=== PATIENT | male | born 1990 | race Caucasian/White ===

== ENCOUNTER 2017-06-27 09:05 | Emergency (ER) | payer OTHER ==
[2017-06-27 09:16] VITALS: BP 125/70; PULSE 82; TEMP 98.6; BMI 31.8
--- NOTE | 2017-06-27 09:30 | PDOC ---
Post Exposure HPI - General Chief Complaint: Non EmpBld/Body Flud Exposure Stated Complaint: PRICKED BY NEEDLE Time Seen by Provider: 06/27/17 09:20 History Source: Patient Exam Limitations: No Limitations - History of Present Illness Initial Comments: 06/27/17 10:20 Chief complaint questionable needlestick injury to left thumb at work today History of present illness: Patient is a 26-year-old male with no significant medical history employee of [employer] here today after patient was struck in his left palmar proximal thumb by a sharp object which patient believed to be a needle at 8 am today. Patient was wearing latex gloves at the time. Warts that it bled immediately and he declined cleaned it out with water and then 30 minutes later cleaned it out with soap and water. Patient and other employees tried to look through the garbage to see whether or not there was broken glass or any needles they did not find any broken glass or needles however there was a large amount of garbage difficult to go through every bit. Patient does not have any record of having hepatitis B vaccine. Patient is not up-to-date with tetanus. 06/27/17 11:13 Timing: this morning (8am) Severity: mild Exposed Location: Left: Finger(s) (thumb proximal palmar aspect ) Assessing Significant Risk PEP: Yes Percutaneous Past History - Past Medical History Allergies/Adverse Reactions: Allergies No Known Allergies Allergy (Verified 06/27/17 09:11) Home Medications: Ambulatory Orders NK [No Known Home Medication] 06/27/17 General: Yes: no pertinent history - Immunization History Immunizations Up to Date: Yes - Social History Smoking Status: Never smoked Review of Systems - Review of Systems Able to Perform ROS?: Yes Constitutional: No: Symptoms Reported HEENTM: No: Symptoms Reported Respiratory: No: Symptoms reported Cardiac (ROS): No: Symptoms Reported ABD/GI: No: Symptoms Reported : No: Symptoms Reported Musculoskeletal: No: Symptoms Reported Integumentary: Yes: Other (left thumb proximal palmar aspect ? needlestick punctate bradford) Neurological: No: Symptoms reported *Physical Exam - Vital Signs Last Vital Signs Temp Pulse Resp BP Pulse Ox 98.6 F 82 18 125/70 97 06/27/17 09:12 06/27/17 09:12 06/27/17 09:12 06/27/17 09:12 06/27/17 09:12 - Physical Exam General Appearance: Yes: Appropriately Dressed Extremity: positive: Normal Capillary Refill, Normal Inspection, Normal Range of Motion (left thumb ) Integumentary: positive: Other (left proximal palmar aspect punctate bradford ) Neurologic: positive: Alert, Normal Response Post Exposure - ED Protocol - Exposure Treatment Washing/Decontamination: Soap/Water Source Patient HIV Status:: Unknown Is PEP indicated?: Yes Prophylaxis for HIV discussed?: Yes Prophylaxis given?: No Prophylaxis refused?: No Drug(s) Information Sheets given:: No Baseline bloods drawn prophylaxis:(use *Exposure-Hosp Emp): Yes Additional Treatment:: DT, HBIG - Referrals Employee Referred to Employee Health:: No City Worker referred to Infection Control Dept.: No Other Post Exposure pt. referral to PCP: Yes (Dr Lynn Wilkins) Medical Decision Making - Medical Decision Making 06/27/17 10:23 Patient is a 26-year-old male with no significant medical history employee of [employer] here today after patient was struck in his left palmar proximal thumb by a sharp object which patient believed to be a needle at 8 am today. He reports that puncture area on left proximal palmar thumb looked like a needle stick and felt like a needle according to patient. Patient was wearing latex gloves at the time. Area bled immediately and he cleaned it out with water and then 30 minutes later cleaned it out with soap and water. Patient and other employees tried to look through the garbage to see whether or not there was broken glass or any needles they did not find any broken glass or needles however there was a large amount of garbage difficult to go through every bit. Patient does not have any record of having hepatitis B vaccine. Patient is not up-to-date with tetanus. questionable needlestick injury thumb PLAN: post exposure labs TDAP 0.5 ml IM given PEP offered pt. declined follow up with PCP hepatitis b Immunoglobulin 6.4 ml IM 06/27/17 11:12 06/27/17 11:39 Laboratory Tests 06/27/17 10:17 Sodium 137 Potassium 4.7 Chloride 103 Carbon Dioxide 30 Anion Gap 4 L BUN 19 H Creatinine 0.9 Creat Clearance w eGFR > 60 Random Glucose 78 Calcium 9.6 Total Bilirubin 0.6 GGT 24 AST 39 H ALT 26 Alkaline Phosphatase 60 Total Protein 7.6 Albumin 4.3 Laboratory Tests 06/27/17 06/27/17 09:09 10:17 Hepatitis C Antibody Pending HIV 1&2 Antibody Screen Negative HIV P24 Antigen Negative 06/27/17 12:00 *DC/Admit/Observation/Transfer Diagnosis at time of Disposition: Needle exposure Qualifiers: Encounter type: initial encounter Qualified Code(s): X58.XXXA - Exposure to other specified factors, initial encounter - Discharge Dispostion Disposition: HOME Condition at time of disposition: Stable - Referrals Referrals: Lynn Wilkins MD [Primary Care Provider] - - Patient Instructions Additional Instructions: today your tetanus, diptheria and pertussis vaccine was updated today you received hepatitis B immunoglobulin Follow-up with your primary care provider within the next few days for further evaluation return to emergency room if any swelling around your puncture wound Patient voiced understanding of discharge instructions and all questions were answered - Post Discharge Activity Work/School Note: Back to Work
[2017-06-27] MEDS ORDERED: DIPHTH,PERTUSS(ACELL),TET 0.5 ML DISP.SYRIN IM ONE (10:11)
[2017-06-27] MEDS ORDERED: HEPATITIS B IMMUNE GLOBULIN 5 ML VIAL IM ONE (10:11)
[2017-06-27 11:25] LABS: ALBUMIN 4.3 g/dl (3.4-5.0); ANION GAP 4 (8-16); BILIRUBIN,TOTAL 0.6 mg/dL (0.2-1.0); CALCIUM 9.6 mg/dL (8.5-10.1); CO2 30 mmol/L (21-32); CREATININE 0.9 mg/dL (0.7-1.3); GLUCOSE,RANDOM 78 mg/dL (74-106); SGOT/AST 39 U/L (15-37); SGPT/ALT 26 U/L (12-78); TOT PROT 7.6 g/dl (6.4-8.2)
[2017-06-27 11:26] LABS: ALK PHOS 60 U/L (45-117)
[2017-06-27 11:53] LABS: HIV 1 & 2 AB NEGATIVE; HIV 1 AGp24 NEGATIVE
== END 2017-06-27 12:39 | disposition home or self-care (01) ==
LOC: JERFT 09:05
PROC: 3E0234Z Introduction of Serum, Toxoid and Vaccine into Muscle, Percutaneous Approach (ICD-10-PCS; principal; 2017-06-27)
PROC: 3E023GC Introduction of Other Therapeutic Substance into Muscle, Percutaneous Approach (ICD-10-PCS; 2017-06-27)
DX: S61.032A Puncture wound without foreign body of left thumb without damage to nail, initial encounter (principal); W22.8XXA Striking against or struck by other objects, initial encounter; Y93.89 Activity, other specified; Y92.9 Unspecified place or not applicable
CPT/HCPCS: 36415; 80053; 82977; 86704; 86706; 86803; 87340; 87389; 90715; 99282-25